=== PATIENT | male | born 1945 | race Caucasian/White ===

== ENCOUNTER 2018-04-17 08:32 | Inpatient (IN) | payer MEDICARE, MEDICAID, OTHER ==
[~2018-04-17] VITALS: Ht 180.3 cm; Wt 73.4 kg
[2018-04-17] MEDS ORDERED: ASPIRIN 600 MG SUPP PR STA (08:41)
[2018-04-17 08:56] LABS: BASOPHILS # (AUTO) 0.06 x10^3/uL (0-0.1); BASOPHILS % (AUTO) 1 % (0-1); EOSINOPHILS # (AUTO) 0.29 x10^3/uL (0-0.4); EOSINOPHILS % (AUTO) 3 % (1-7); LYMPHOCYTES # (AUTO) 1.74 x10^3/uL (1-3.4); LYMPHOCYTES % (AUTO) 19 % (22-44); MD NO; MEAN CORPUSCULAR HEMOGLOBIN 30.8 pg (27.5-34.5); MEAN CORPUSCULAR HGB CONC 33.3 g/dL (33.2-36.2); MEAN CORPUSCULAR VOLUME 92.5 fL (81-97); MEAN PLATELET VOLUME 8.5 fL (7.4-10.4); MONOCYTES # (AUTO) 0.72 x10^3/uL (0.2-0.8); MONOCYTES % (AUTO) 8 % (2-9); NEUTROPHILS # (AUTO) 6.29 x10^3/uL (1.8-6.8); NEUTROPHILS % (AUTO) 69 % (42-75); PLATELET COUNT 162 x10^3/uL (130-400); RED BLOOD COUNT 4.35 x10^6/uL (4.38-5.82); RED CELL DISTRIBUTION WIDTH 16.7 % (9.4-14.8)
[2018-04-17 09:07] LABS: INTERNATIONAL NORMALIZED RATIO 1.03 (0.93-1.1); PROTHROMBIN TIME 10.7 Seconds (9.6-11.5)
[2018-04-17 09:11] LABS: TROPONIN I < 0.015 ng/mL (0.000-0.045)
[2018-04-17] MEDS ORDERED: MIDAZOLAM 1 MG/ML, 2ML ONE (09:23)
[2018-04-17] MEDS ORDERED: VERAPAMIL 2.5 MG/ML, 2ML ONE (09:23)
[2018-04-17] MEDS ORDERED: FENTANYL PF 100 MCG/2ML ONE (09:23)
[2018-04-17] MEDS ORDERED: BIVALIRUDIN 250 MG ONE (09:23)
[2018-04-17] MEDS ORDERED: TICAGRELOR 90 MG TABLET ONE (09:23)
[2018-04-17] MEDS ORDERED: LIDOCAINE-MPF 1%, 5ML ONE (09:24)
[2018-04-17] MEDS: PLEASE ENTER ALLERGIES MC SCH ×3 (09:30→19:56)
[2018-04-17] MEDS: SODIUM CHLORIDE 0.9% 1,000 ML IV SCH ×2 (10:08→18:22)
[2018-04-17] MEDS ORDERED: LABETALOL 5MG/ML, 20ML IV PRN (12:00)
[2018-04-17] MEDS ORDERED: BISACODYL 10 MG SUPP PR PRN (12:00)
[2018-04-17] MEDS ORDERED: ACETAMINOPHEN 325 MG TABLET PO PRN (12:00)
[2018-04-17] MEDS ORDERED: ONDANSETRON 2MG/ML, 2ML IVPush PRN (12:00)
[2018-04-17] MEDS ORDERED: DOCUSATE 100 MG CAPSULE PO PRN (12:00)
[2018-04-17] MEDS ORDERED: POLYETHYLENE GLYCOL 17 GM PACKET PO PRN (12:00)
[2018-04-17 13:12] LABS: CHLORIDE 110 mmol/L (98-107)
[2018-04-17 13:30] LABS: ALANINE AMINOTRANSFERASE 13 U/L (12-78); ALBUMIN 3.7 g/dL (3.4-5.0); ALKALINE PHOSPHATASE 59 U/L (45-117); ANION GAP 12 mmol/L (5-15); BILIRUBIN,TOTAL 0.7 mg/dL (0.2-1.0); CALCIUM 9.4 mg/dL (8.5-10.1); CREATININE 1.56 mg/dL (0.7-1.3); TOTAL PROTEIN 7.3 g/dL (6.4-8.2)
[2018-04-17] MEDS ORDERED: DEXTROSE 4 GM TAB.CHEW PO PRN (15:00)
[2018-04-17] MEDS ORDERED: DEXTROSE 50%, 50ML SYRINGE IVPush PRN (15:00)
[2018-04-17] MEDS ORDERED: GLUCAGON 1 MG IM PRN (15:00)
[2018-04-17] MEDS ORDERED: CARB1TAB22 PO (16:09)
[2018-04-17] MEDS ORDERED: LEVO50TA5 PO (16:09)
[2018-04-17] MEDS ORDERED: IBUP-1221 PO (16:09)
[2018-04-17] MEDS ORDERED: TAMS0.4C2 PO (16:09)
[2018-04-17] MEDS ORDERED: METO10TA2 PO (16:09)
[2018-04-17] MEDS ORDERED: GABA800T2 PO (16:09)
[2018-04-17] MEDS ORDERED: MIRT7.5T8 PO (16:09)
[2018-04-17] MEDS ORDERED: SIMV80TA7 PO (16:09)
[2018-04-17] MEDS ORDERED: ASPI-621 PO (16:09)
[2018-04-17] MEDS ORDERED: FLUD0.1T PO (16:09)
[2018-04-17] MEDS ORDERED: TRAZ-136 PO (16:09)
[2018-04-17] MEDS ORDERED: INSU100V8 SQ (18:15)
[2018-04-17] MEDS: METOPROLOL TARTRATE 25 MG TABLET PO SCH (18:21)
[2018-04-17 20:00] VITALS: BP 126/61
[2018-04-17] MEDS: SODIUM CHLORIDE FLUSH 10ML SYR IVF SCH (21:32)
[2018-04-17] MEDS: ATORVASTATIN 80 MG TABLET PO SCH (21:32)
[2018-04-17] MEDS ORDERED: LORazepam 1MG TABLET PO ONE (23:30)
[2018-04-18] MEDS ORDERED: LORazepam 1MG TABLET PO ONE
[2018-04-18] MEDS ORDERED: LORazepam 1MG TABLET PO PRN (00:30)
[2018-04-18 02:00] VITALS: BP 129/67
[2018-04-18] MEDS ORDERED: ZIPRASIDONE 20 MG INJ IM ONE (04:30)
[2018-04-18 05:44] LABS: BASOPHILS # (AUTO) 0.03 x10^3/uL (0-0.1); BASOPHILS % (AUTO) 1 % (0-1); EOSINOPHILS # (AUTO) 0.26 x10^3/uL (0-0.4); EOSINOPHILS % (AUTO) 4 % (1-7); LYMPHOCYTES # (AUTO) 1.11 x10^3/uL (1-3.4); LYMPHOCYTES % (AUTO) 17 % (22-44); MD NO; MEAN CORPUSCULAR HEMOGLOBIN 31.2 pg (27.5-34.5); MEAN CORPUSCULAR HGB CONC 34.1 g/dL (33.2-36.2); MEAN CORPUSCULAR VOLUME 91.7 fL (81-97); MEAN PLATELET VOLUME 8.3 fL (7.4-10.4); MONOCYTES # (AUTO) 0.49 x10^3/uL (0.2-0.8); MONOCYTES % (AUTO) 8 % (2-9); NEUTROPHILS % (AUTO) 71 % (42-75); PLATELET COUNT 136 x10^3/uL (130-400); RED BLOOD COUNT 3.92 x10^6/uL (4.38-5.82); RED CELL DISTRIBUTION WIDTH 16.6 % (9.4-14.8)
[2018-04-18 05:55] LABS: CHLORIDE 111 mmol/L (98-107)
[2018-04-18 05:58] LABS: HEMOGLOBIN A1C 6.5 % (4.2-6.3)
[2018-04-18 06:05] LABS: ALANINE AMINOTRANSFERASE 17 U/L (12-78); ALBUMIN 3.3 g/dL (3.4-5.0); ALKALINE PHOSPHATASE 56 U/L (45-117); ANION GAP 8 mmol/L (5-15); BILIRUBIN,TOTAL 0.9 mg/dL (0.2-1.0); CHOL/HDL RATIO 2.2; CHOLESTEROL, TOTAL 98 mg/dL (140-239); CREATININE 0.65 mg/dL (0.7-1.3); HDL CHOL % 46 % (26-37); HDL CHOLESTEROL (DIRECT) 45 mg/dL (40-60); LDL CHOLESTEROL,CALCULATED 24 mg/dL (54-169); LDL/HDL RATIO 0.5 (0.5-3.0); TOTAL PROTEIN 6.7 g/dL (6.4-8.2); TRIGLYCERIDES 146 mg/dL (50-200); VLDL CHOLESTEROL 29 mg/dL (0-25)
[2018-04-18] MEDS: ASPIRIN 81 MG TABLET EC PO SCH (06:43)
[2018-04-18] MEDS: METOPROLOL TARTRATE 25 MG TABLET PO SCH ×2 (06:43→16:41)
[2018-04-18] MEDS: SODIUM CHLORIDE 0.9% 1,000 ML IV SCH (07:00)
[2018-04-18 07:06] VITALS: BP 187/91
[2018-04-18 08:45] VITALS: BP 140/81
[2018-04-18] MEDS: GABAPENTIN 400 MG CAPSULE PO SCH ×2 (08:52→22:18)
[2018-04-18] MEDS: LEVOTHYROXINE 50 MCG TABLET PO SCH (08:52)
[2018-04-18] MEDS: TAMSULOSIN 0.4 MG CAP.ER.24H PO SCH ×2 (08:53→22:18)
[2018-04-18] MEDS: SODIUM CHLORIDE FLUSH 10ML SYR IVF SCH ×2 (08:53→22:18)
[2018-04-18] MEDS: FLUDROCORTISONE 0.1 MG TABLET PO SCH (08:53)
[2018-04-18] MEDS ORDERED: CARBIDOPA/LEVODOPA 25 MG/100 MG TABLET PO SCH (09:00)
[2018-04-18 11:48] LABS: FOLATE LEVEL 12.5 ng/mL (3.1-17.5); FREE T4 (FREE THYROXINE) 0.96 ng/dL (0.76-1.46); THYROID STIMULATING HORMONE 4.88 mIU/L (0.358-3.740)
[2018-04-18 13:16] VITALS: BP 114/56
[2018-04-18 20:00] VITALS: BP 159/66
[2018-04-18 22:16] VITALS: BP 159/66
[2018-04-18] MEDS: CARBIDOPA/LEVODOPA 25 MG/100 MG TABLET PO SCH (22:17)
[2018-04-18] MEDS: MIRTAZAPINE 15 MG TABLET PO SCH (22:17)
[2018-04-18] MEDS: ATORVASTATIN 80 MG TABLET PO SCH (22:18)
[2018-04-19] VITALS (8 sets, daily range): BP systolic 81–179; BP diastolic 44–70
[2018-04-19] MEDS: ASPIRIN 81 MG TABLET EC PO SCH (05:49)
[2018-04-19] MEDS: METOPROLOL TARTRATE 25 MG TABLET PO SCH (05:49)
[2018-04-19 09:02] LABS: BASOPHILS # (AUTO) 0.09 x10^3/uL (0-0.1); BASOPHILS % (AUTO) 1 % (0-1); EOSINOPHILS # (AUTO) 0.21 x10^3/uL (0-0.4); EOSINOPHILS % (AUTO) 3 % (1-7); LYMPHOCYTES # (AUTO) 0.98 x10^3/uL (1-3.4); LYMPHOCYTES % (AUTO) 16 % (22-44); MD NO; MEAN CORPUSCULAR HEMOGLOBIN 31.3 pg (27.5-34.5); MEAN PLATELET VOLUME 8.4 fL (7.4-10.4); MONOCYTES # (AUTO) 0.52 x10^3/uL (0.2-0.8); MONOCYTES % (AUTO) 8 % (2-9); NEUTROPHILS # (AUTO) 4.45 x10^3/uL (1.8-6.8); NEUTROPHILS % (AUTO) 71 % (42-75); PLATELET COUNT 140 x10^3/uL (130-400); RED BLOOD COUNT 3.85 x10^6/uL (4.38-5.82); RED CELL DISTRIBUTION WIDTH 16.5 % (9.4-14.8)
[2018-04-19] MEDS: TAMSULOSIN 0.4 MG CAP.ER.24H PO SCH ×2 (09:02→20:59)
[2018-04-19] MEDS: FLUDROCORTISONE 0.1 MG TABLET PO SCH (09:02)
[2018-04-19] MEDS: LEVOTHYROXINE 50 MCG TABLET PO SCH (09:03)
[2018-04-19] MEDS: CARBIDOPA/LEVODOPA 25 MG/100 MG TABLET PO SCH ×3 (09:03→20:59)
[2018-04-19] MEDS: SODIUM CHLORIDE FLUSH 10ML SYR IVF SCH ×2 (09:04→21:00)
[2018-04-19] MEDS: GABAPENTIN 400 MG CAPSULE PO SCH ×2 (09:04→20:59)
[2018-04-19 09:15] LABS: ALBUMIN 3.4 g/dL (3.4-5.0); ANION GAP 9 mmol/L (5-15); CALCIUM 8.9 mg/dL (8.5-10.1); CHLORIDE 108 mmol/L (98-107); CREATININE 0.89 mg/dL (0.7-1.3)
[2018-04-19] MEDS: ATORVASTATIN 80 MG TABLET PO SCH (20:59)
[2018-04-19] MEDS: MIRTAZAPINE 15 MG TABLET PO SCH (20:59)
[2018-04-20 01:10] VITALS: BP 158/71
[2018-04-20 05:44] LABS: BASOPHILS # (AUTO) 0.03 x10^3/uL (0-0.1); BASOPHILS % (AUTO) 1 % (0-1); EOSINOPHILS # (AUTO) 0.17 x10^3/uL (0-0.4); EOSINOPHILS % (AUTO) 3 % (1-7); LYMPHOCYTES # (AUTO) 0.57 x10^3/uL (1-3.4); LYMPHOCYTES % (AUTO) 10 % (22-44); MD NO; MEAN CORPUSCULAR HEMOGLOBIN 31.6 pg (27.5-34.5); MEAN CORPUSCULAR HGB CONC 33.9 g/dL (33.2-36.2); MEAN CORPUSCULAR VOLUME 93.2 fL (81-97); MEAN PLATELET VOLUME 8.8 fL (7.4-10.4); MONOCYTES # (AUTO) 0.43 x10^3/uL (0.2-0.8); MONOCYTES % (AUTO) 8 % (2-9); NEUTROPHILS # (AUTO) 4.33 x10^3/uL (1.8-6.8); NEUTROPHILS % (AUTO) 78 % (42-75); PLATELET COUNT 123 x10^3/uL (130-400); RED BLOOD COUNT 3.75 x10^6/uL (4.38-5.82); RED CELL DISTRIBUTION WIDTH 16.5 % (9.4-14.8)
[2018-04-20 05:49] LABS: ALBUMIN 3.2 g/dL (3.4-5.0); ANION GAP 7 mmol/L (5-15); CALCIUM 8.6 mg/dL (8.5-10.1); CHLORIDE 108 mmol/L (98-107)
[2018-04-20 05:54] LABS: ALANINE AMINOTRANSFERASE 13 U/L (12-78); ALKALINE PHOSPHATASE 65 U/L (45-117); BILIRUBIN,TOTAL 0.6 mg/dL (0.2-1.0); TOTAL PROTEIN 6.6 g/dL (6.4-8.2)
[2018-04-20] MEDS: ASPIRIN 81 MG TABLET EC PO SCH (06:26)
[2018-04-20 07:16] VITALS: BP 153/73
[2018-04-20] MEDS: FLUDROCORTISONE 0.1 MG TABLET PO SCH (09:00)
[2018-04-20] MEDS: SODIUM CHLORIDE FLUSH 10ML SYR IVF SCH (09:00)
[2018-04-20] MEDS: LEVOTHYROXINE 50 MCG TABLET PO SCH (09:01)
[2018-04-20] MEDS: TAMSULOSIN 0.4 MG CAP.ER.24H PO SCH (09:01)
[2018-04-20] MEDS: CARBIDOPA/LEVODOPA 25 MG/100 MG TABLET PO SCH ×2 (09:01→16:41)
[2018-04-20] MEDS: GABAPENTIN 400 MG CAPSULE PO SCH (09:01)
[2018-04-20 12:25] LABS: CLOSTRIDIUM DIFFICILE ANTIGEN NEGATIVE; CLOSTRIDIUM DIFFICILE TOXIN NEGATIVE (Negative)
[2018-04-20 12:51] VITALS: BP 149/78
[2018-04-20] MEDS ORDERED: ATOR-2 PO (14:05)
[2018-04-20] MEDS ORDERED: CARB1TAB22 PO (14:05)
[2018-04-20] MEDS ORDERED: TAMS0.4C2 PO (14:47)
== END 2018-04-20 17:19 | DRG 280 ==
LOC: ED 09:48 → EDIP 09:53 → CCU 10:22 → 5SO 16:54
PROVIDERS: ADMIT Hospitalist; ATTEND Hospitalist
PROC: 4A023N7 Measurement of Cardiac Sampling and Pressure, Left Heart, Percutaneous Approach (ICD-10-PCS; principal; 2018-04-17)
PROC: B2111ZZ Fluoroscopy of Multiple Coronary Arteries using Low Osmolar Contrast (ICD-10-PCS; 2018-04-17)
PROC: B2151ZZ Fluoroscopy of Left Heart using Low Osmolar Contrast (ICD-10-PCS; 2018-04-17)
PROC: B3101ZZ Fluoroscopy of Thoracic Aorta using Low Osmolar Contrast (ICD-10-PCS; 2018-04-17)
PROC: B3121ZZ Fluoroscopy of Left Subclavian Artery using Low Osmolar Contrast (ICD-10-PCS; 2018-04-17)
DX: I21.09 ST elevation (STEMI) myocardial infarction involving other coronary artery of anterior wall (principal); N17.0 Acute kidney failure with tubular necrosis; I63.81 Other cerebral infarction due to occlusion or stenosis of small artery; E43 Unspecified severe protein-calorie malnutrition; G93.40 Encephalopathy, unspecified; E11.43 Type 2 diabetes mellitus with diabetic autonomic (poly)neuropathy; E11.51 Type 2 diabetes mellitus with diabetic peripheral angiopathy without gangrene; E78.5 Hyperlipidemia, unspecified; E86.0 Dehydration; F17.200 Nicotine dependence, unspecified, uncomplicated; G20 Parkinson's disease; I10 Essential (primary) hypertension; I25.10 Atherosclerotic heart disease of native coronary artery without angina pectoris; I95.1 Orthostatic hypotension; G90.8 Other disorders of autonomic nervous system; I35.1 Nonrheumatic aortic (valve) insufficiency; Z86.73 Personal history of transient ischemic attack (TIA), and cerebral infarction without residual deficits; Z95.1 Presence of aortocoronary bypass graft; Z23 Encounter for immunization; Z68.22 Body mass index [BMI] 22.0-22.9, adult
CPT/HCPCS: 36415; 70450; 70544; 70551; 71045; 74230; 80047; 80048; 80053; 80061; 82040; 82607; 82746; 82962; 83036; 83735; 84100; 84439; 84443; 84484; 85025; 85610; 85730; 87081; 87324; 90656; 93005; 93306; 93458; 93567; 93880; 99156; 99285; C1760; C1769; C1894; G0378; J0583; J2250; J3010; J3486; 92523-GN; J7030; Q9967

== ENCOUNTER 2018-06-16 01:44 | Emergency (ER) | payer MEDICARE, MEDICAID ==
[~2018-06-16] VITALS: Ht 177.8 cm; Wt 84.0 kg
[~2018-06-16 01:44] MED LIST: ASPI81TA45 PO; ATOR-2 PO; CARB1TAB22 PO; FLUD0.1T PO; GABA800T2 PO; IBUP-1221 PO; INSU100V8 SQ; LEVO50TA5 PO; METO10TA2 PO; MIRT7.5T8 PO; SIMV80TA7 PO; TAMS0.4C2 PO; TRAZ50TA66 PO
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
--- NOTE | 2018-06-16 01:58 | NUR ---
Doreen DOLL, at bedside to evaluate pt.
--- NOTE | 2018-06-16 02:05 | NUR ---
PT'S FAMILY AT BEDSIDE AND UPDATED ON POC.
--- NOTE | 2018-06-16 02:21 | NUR ---
DR. CHARLES AT BEDSIDE TO EVALUATE PT AND DISCUSS POC WITH PT'S FAMILY.
--- NOTE | 2018-06-16 02:26 | NUR ---
This RN spoke with staff member, Radha, at [facility] who states that they are accepting the pt back to the facility. Dr. Torres and SHARMILA Logan, made aware and pt's discharge paperwork ready.
[2018-06-16 02:45] VITALS: BP 157/58
--- NOTE | 2018-06-16 02:46 | NUR ---
Patient/Caregiver given discharge instructions and they have confirmed that they understand the instructions. Patient ambulatory with steady gait.
== END 2018-06-16 02:47 | disposition home or self-care (01) ==
LOC: ED 02:04
DX: T68.XXXA Hypothermia, initial encounter (principal); F03.90 Unspecified dementia, unspecified severity, without behavioral disturbance, psychotic disturbance, mood disturbance, and anxiety
CPT/HCPCS: 99283

== ENCOUNTER 2018-08-01 11:04 | Observation (INO) | payer MEDICARE, MEDICAID ==
[~2018-08-01] VITALS: Ht 177.8 cm; Wt 74.0 kg
[~2018-08-01 11:04] MED LIST changes: -GABA800T2 PO; +GABA800T5 PO; +SIMV80TA18 PO; -SIMV80TA7 PO
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
[2018-08-01] MEDS ORDERED: SODIUM CHLORIDE FLUSH 10ML SYR IVF ONE (11:30)
[2018-08-01] MEDS ORDERED: ASPIRIN 81 MG TABLET CHEW PO ONE (11:30)
[2018-08-01] MEDS ORDERED: NITROGLYCERIN SINGLE TAB 0.4 MG SL ONE (11:42)
[2018-08-01] MEDS ORDERED: ASPIRIN 81 MG TABLET CHEW ONE (11:42)
[2018-08-01] MEDS: NITROGLYCERIN SINGLE TAB 0.4 MG SL PRN ×3 (11:50→12:17)
--- NOTE | 2018-08-01 11:51 | NUR ---
PT MEDICATED PER AUG. 5 RIGHTS VERIFIED PRIOR. 3 P'S ADDRESSED.
--- NOTE | 2018-08-01 12:00 | NUR ---
PT MEDICATED PER AUG. RIGHTS VERIFIED PRIOR. NO CHANGE IN PT'S /10 CHEST PAIN.
[2018-08-01 12:04] LABS: ALBUMIN 3.4 g/dL (3.4-5.0); ANION GAP 7 mmol/L (5-15); CALCIUM 9.2 mg/dL (8.5-10.1); CHLORIDE 109 mmol/L (98-107)
[2018-08-01 12:10] LABS: CREATININE 0.89 mg/dL (0.7-1.3); TROPONIN I < 0.015 ng/mL (0.000-0.045)
--- NOTE | 2018-08-01 12:17 | NUR ---
PT MEDICATED PER AUG. RIGHTS VERIFIED PRIOR. PT STATES CHEST PAIN IS NOW 11/20.
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
[2018-08-01 12:56] LABS: BASOPHILS # (AUTO) 0.02 x10^3/uL (0-0.1); BASOPHILS % (AUTO) 0 % (0-1); EOSINOPHILS # (AUTO) 0.27 x10^3/uL (0-0.4); EOSINOPHILS % (AUTO) 4 % (1-7); LYMPHOCYTES # (AUTO) 1.22 x10^3/uL (1-3.4); LYMPHOCYTES % (AUTO) 19 % (22-44); MD SCAN; MEAN CORPUSCULAR HEMOGLOBIN 30.6 pg (27.5-34.5); MEAN CORPUSCULAR HGB CONC 33.6 g/dL (33.2-36.2); MEAN CORPUSCULAR VOLUME 91.1 fL (81-97); MEAN PLATELET VOLUME 8.4 fL (7.4-10.4); MONOCYTES # (AUTO) 0.33 x10^3/uL (0.2-0.8); MONOCYTES % (AUTO) 5 % (2-9); NEUTROPHILS % (AUTO) 71 % (42-75); PLATELET COUNT 164 x10^3/uL (130-400); RED BLOOD COUNT 4.05 x10^6/uL (4.38-5.82)
[2018-08-01 12:57] LABS: RED CELL DISTRIBUTION WIDTH 15.2 % (9.4-14.8)
[2018-08-01] MEDS ORDERED: NITROGLYCERIN OINT 2%, 1GM TP ONE ×2 (13:00→13:37)
--- NOTE | 2018-08-01 13:42 | NUR ---
PT MEDICATED PER AUG. RIGHTS VERIFIED PRIOR. 3 P'S ADDRESSED. POC UPDATED WITH PT. AWAITING ROOM ASSIGNMENT AT THIS TIME. WILL CONTINUE TO MONITOR.
[2018-08-01] MEDS ORDERED: ONDANSETRON 2MG/ML, 2ML IVPush PRN (14:00)
[2018-08-01] MEDS ORDERED: ONDANSETRON ODT 4 MG PO PRN (14:00)
[2018-08-01] MEDS ORDERED: ACETAMINOPHEN 325 MG TABLET PO PRN (14:00)
[2018-08-01] MEDS ORDERED: MORPHINE SULFATE 4 MG/ML, 1ML IVPush PRN (14:00)
[2018-08-01 14:39] LABS: TROPONIN I < 0.015 ng/mL (0.000-0.045)
--- NOTE | 2018-08-01 14:41 | NUR ---
LUNCH RN: PT RESTING IN ROOM WITH FAMILY AT BEDSIDE. AWAITING ROOM ON FLOOR. AHSAN COKER. DIET TRAY ORDERED PER PT REQUEST. CALL LIGHT WITHIN REACH
--- NOTE | 2018-08-01 15:09 | NUR ---
REPORT TO LAKISHA FUCHS. AWARE THAT SACRAL WOUND REPORTED BY FAMILY NEEDS TO BE PHOTOGRAPHED.
[2018-08-01] MEDS: INSULIN LISPRO 100 UNITS/ML, PEN SQ-INSULIN SCH ×2 (16:00→22:32)
[2018-08-01 16:15] VITALS: BP 154/74
[2018-08-01] MEDS: LACTOBACILLUS CHEW TABLET PO SCH ×2 (17:08→20:23)
[2018-08-01] MEDS: NICOTINE 7 MG/24 HR PATCH.TD24 TD SCH (17:08)
[2018-08-01] MEDS: CARBIDOPA/LEVODOPA 25 MG/100 MG TABLET PO SCH ×2 (17:08→20:23)
[2018-08-01] MEDS: SODIUM CHLORIDE 0.9% 1,000 ML IV SCH (17:09)
[2018-08-01] MEDS: ENOXAPARIN 40 MG/0.4 ML SQ SCH (17:09)
[2018-08-01 18:35] VITALS: BP 167/75
[2018-08-01] MEDS ORDERED: INSU100V13 SC ×2 (19:46)
[2018-08-01] MEDS ORDERED: MIDO2.5T PO (19:46)
[2018-08-01] MEDS ORDERED: ROPI0.5T2 PO (19:46)
[2018-08-01 19:52] LABS: TROPONIN I < 0.015 ng/mL (0.000-0.045)
[2018-08-01] MEDS: MIRTAZAPINE 15 MG TABLET PO SCH (20:23)
[2018-08-01] MEDS: GABAPENTIN 400 MG CAPSULE PO SCH (20:23)
[2018-08-01] MEDS: ATORVASTATIN 80 MG TABLET PO SCH (20:23)
[2018-08-01] MEDS ORDERED: TRAZODONE 50MG TABLET ONE (22:08)
[2018-08-01] MEDS: INSULIN GLARGINE 100 UNITS/ML, PEN SQ-INSULIN SCH (22:32)
[2018-08-02 01:25] VITALS: BP 113/59
[2018-08-02] MEDS: INSULIN LISPRO 100 UNITS/ML, PEN SQ-INSULIN SCH ×4 (07:00→20:33)
[2018-08-02 07:42] VITALS: BP 134/58
[2018-08-02 08:33] LABS: HEMOGLOBIN A1C 7.5 % (4.2-6.3)
[2018-08-02] MEDS ORDERED: REGADENOSON 0.4 MG/5 ML SYRINGE ONE (08:49)
[2018-08-02] MEDS: LEVOTHYROXINE 50 MCG TABLET PO SCH (08:51)
[2018-08-02] MEDS: GABAPENTIN 400 MG CAPSULE PO SCH ×2 (08:51→20:31)
[2018-08-02] MEDS: CARBIDOPA/LEVODOPA 25 MG/100 MG TABLET PO SCH ×3 (08:51→20:32)
[2018-08-02] MEDS: LACTOBACILLUS CHEW TABLET PO SCH ×3 (08:53→20:31)
[2018-08-02] MEDS: TAMSULOSIN 0.4 MG CAP.ER.24H PO SCH (08:53)
[2018-08-02] MEDS: ASPIRIN 81 MG TABLET EC PO SCH (08:53)
[2018-08-02] MEDS: INSULIN GLARGINE 100 UNITS/ML, PEN SQ-INSULIN SCH ×2 (08:54→20:33)
[2018-08-02] MEDS ORDERED: FLUDROCORTISONE 0.1 MG TABLET PO SCH (09:00)
[2018-08-02] MEDS ORDERED: NICO-485 TD (10:18)
[2018-08-02] MEDS ORDERED: ACID1TAB7 PO (10:18)
[2018-08-02] MEDS ORDERED: NITR0.4T SL (10:18)
[2018-08-02 13:28] VITALS: BP 158/70
[2018-08-02] MEDS: SODIUM CHLORIDE 0.9% 1,000 ML IV SCH (17:14)
[2018-08-02] MEDS: NICOTINE 7 MG/24 HR PATCH.TD24 TD SCH (17:15)
[2018-08-02] MEDS: ENOXAPARIN 40 MG/0.4 ML SQ SCH (17:16)
[2018-08-02 19:21] VITALS: BP 133/72
[2018-08-02] MEDS: TRAZODONE 50MG TABLET PO SCH (20:31)
[2018-08-02] MEDS: ATORVASTATIN 80 MG TABLET PO SCH (20:31)
[2018-08-02] MEDS: MIRTAZAPINE 15 MG TABLET PO SCH (20:32)
[2018-08-03 02:07] VITALS: BP_SYST 148; BP_SYST 149; BP_DIAS 66
[2018-08-03] MEDS: LEVOTHYROXINE 50 MCG TABLET PO SCH (05:50)
[2018-08-03] MEDS: INSULIN LISPRO 100 UNITS/ML, PEN SQ-INSULIN SCH ×3 (07:00→16:00)
[2018-08-03 07:34] VITALS: BP 153/72
[2018-08-03] MEDS: GABAPENTIN 400 MG CAPSULE PO SCH (10:31)
[2018-08-03] MEDS: TAMSULOSIN 0.4 MG CAP.ER.24H PO SCH (10:31)
[2018-08-03] MEDS: TRAZODONE 50MG TABLET PO SCH (10:31)
[2018-08-03] MEDS: LACTOBACILLUS CHEW TABLET PO SCH (10:31)
[2018-08-03] MEDS: ASPIRIN 81 MG TABLET EC PO SCH (10:31)
[2018-08-03] MEDS: CARBIDOPA/LEVODOPA 25 MG/100 MG TABLET PO SCH (10:31)
[2018-08-03] MEDS: INSULIN GLARGINE 100 UNITS/ML, PEN SQ-INSULIN SCH (11:07)
[2018-08-03 13:53] VITALS: BP 163/81
== END 2018-08-03 17:03 ==
LOC: ED 12:55 → EDIP 12:58 → INTOOBSV 12:58 → 5SO 15:39
PROVIDERS: ADMIT Internal Medicine; ATTEND Internal Medicine
DX: I25.119 Atherosclerotic heart disease of native coronary artery with unspecified angina pectoris (principal); E11.9 Type 2 diabetes mellitus without complications; F03.90 Unspecified dementia, unspecified severity, without behavioral disturbance, psychotic disturbance, mood disturbance, and anxiety; F17.210 Nicotine dependence, cigarettes, uncomplicated; G20 Parkinson's disease; G45.9 Transient cerebral ischemic attack, unspecified; G47.00 Insomnia, unspecified; I10 Essential (primary) hypertension; I25.2 Old myocardial infarction; Z86.73 Personal history of transient ischemic attack (TIA), and cerebral infarction without residual deficits; Z95.1 Presence of aortocoronary bypass graft; Z95.5 Presence of coronary angioplasty implant and graft; R01.1 Cardiac murmur, unspecified
CPT/HCPCS: 36415; 71045; 78452; 80048; 82040; 82962; 83036; 84484; 85025; 93005; 93017; 93306; 96372; 97162; 99284; A9502; C9898; G0378; J1650; J1815; J2785; J7030

== ENCOUNTER 2018-09-11 12:57 | Inpatient (IN) | payer MEDICARE, MEDICAID ==
[~2018-09-11] VITALS: Ht 182.9 cm; Wt 71.6 kg
[~2018-09-11 12:57] MED LIST changes: +ACID1TAB7 PO; +INSU100V13 SC; +MIDO2.5T PO; +NICO-485 TD; +NITR0.4T SL; +ROPI0.5T2 PO
--- NOTE | 2018-09-11 13:15 | NUR ---
returned from CT at this time
[2018-09-11] MEDS ORDERED: SODIUM CHLORIDE 0.9% 1,000 ML IV ONE (13:20)
[2018-09-11] MEDS ORDERED: OMNIPAQUE 350 MG/ML, 100ML BOTTLE ONE (13:29)
[2018-09-11] MEDS ORDERED: SODIUM CHLORIDE FLUSH 10ML SYR IVF ONE (13:30)
[2018-09-11] MEDS ORDERED: ACETAMINOPHEN 650 MG SUPP PR ONE (13:30)
[2018-09-11] MEDS ORDERED: SODIUM CHLORIDE 0.9% 1,000ML IVBOLUS ONE ×2 (13:30→14:30)
--- NOTE | 2018-09-11 13:30 | NUR ---
Patient brought in by EMS for reported sudden onset altered level of consciousness at 1100 this morning. Upon arrival patient's blood glucose was reportedly 355mg/dL and patient was unable to follow commands. Stroke pre alert called, patient arrived to Emergency Department and was taken directly to CT scan. Patient has been mostly drowsy since arrival, arouses to voice but has difficulty following commands. Continuous blood pressure, SPO2 and cardiac monitoring in place. Daughter at bedside at this time. Labs being drawn.
[2018-09-11 13:33] LABS: MEAN CORPUSCULAR HEMOGLOBIN 29.6 pg (27.5-34.5); MEAN CORPUSCULAR HGB CONC 32.7 g/dL (33.2-36.2); MEAN CORPUSCULAR VOLUME 90.6 fL (81-97); PLATELET COUNT 129 x10^3/uL (130-400); RED BLOOD COUNT 3.95 x10^6/uL (4.38-5.82)
--- NOTE | 2018-09-11 13:33 | NUR ---
Patient will multiple ulcers to bilateral toes, pressure wound to coccyx.
[2018-09-11 13:43] LABS: INTERNATIONAL NORMALIZED RATIO 1.11 (0.93-1.1); PROTHROMBIN TIME 11.6 Seconds (9.6-11.5)
[2018-09-11 13:53] LABS: MD YES
[2018-09-11 13:55] LABS: BANDS%(MANUAL) 24 % (0-7); MONOS#(MANUAL) 1.05 x10^3/uL (0.3-2.7); MONOS% (MANUAL) 7 % (2-9); SEG#(MANUAL) 10.35 x10^3/uL (1.8-6.8); SEGS% (MANUAL) 69 % (42-75)
[2018-09-11 13:56] LABS: ANISOCYTOSIS 1+
[2018-09-11 13:57] LABS: <PLATELET ESTIMATE> DECREASED; <PLT MORPHOLOGY> NORMAL PLT MORPH
[2018-09-11] MEDS ORDERED: ALTEPLASE IV STA (14:11)
[2018-09-11] MEDS ORDERED: ALTEPLASE 7 MG in SYRINGE 1 EA IVPush STA (14:11)
[2018-09-11 14:13] LABS: TROPONIN I < 0.015 ng/mL (0.000-0.045)
--- NOTE | 2018-09-11 14:16 | NUR ---
When attempting to use straight catheterization for urine sample patient had bleeding from urethra without excessive force used, patient tolerated well but catheter removed without retrieving sample. Dr. Estrada notified, condom catheter to be put in place for urine sample per Dr. Estrada. Dr. Cruz notified of bleeding with catheterization attempt.
[2018-09-11 14:21] LABS: ACETONE, SERUM Negative (Negative)
[2018-09-11] MEDS ORDERED: CEFTRIAXONE PMX 1GM/50ML 50 ML ONE (14:24)
[2018-09-11] MEDS ORDERED: ACETAMINOPHEN 650 MG SUPP ONE (14:24)
[2018-09-11] MEDS ORDERED: AZITHROMYCIN 500 MG in SODIUM CHLORIDE 0.9% 250 ML IVPB ONE (14:30)
[2018-09-11] MEDS ORDERED: CEFTRIAXONE PMX 1GM/50ML 50 ML IVPB ONE (14:30)
--- NOTE | 2018-09-11 14:41 | NUR ---
Patient rolled on his left side after tylenol administration
[2018-09-11] MEDS ORDERED: INSU100V13 SC ×2 (14:52)
[2018-09-11] MEDS ORDERED: SODIUM CHLORIDE FLUSH 10ML SYR IVF PRN (15:00)
--- NOTE | 2018-09-11 16:18 | NUR ---
Report to LAKISHA Hammond.
--- NOTE | 2018-09-11 16:25 | NUR ---
Plan of care updated with patient's family, questions answered. Daughter Bailee: [phone] Son in law Miki: [phone]
[2018-09-11] MEDS ORDERED: DOCUSATE 100 MG CAPSULE PO PRN (16:30)
[2018-09-11] MEDS ORDERED: hydrALAzine 20 MG/ML, 1ML IVPush PRN (16:30)
[2018-09-11] MEDS ORDERED: ONDANSETRON 2MG/ML, 2ML IVPush PRN (16:30)
--- NOTE | 2018-09-11 16:34 | NUR ---
Condom catheter not yet received from central supply despite multiple requests. Patient incontinent of large amount of urine perineal hygiene performed.
[2018-09-11 17:36] VITALS: BP 122/74
[2018-09-11] MEDS: LACTATED RINGERS 1,000 ML IV SCH (18:10)
[2018-09-11 19:31] VITALS: BP 103/55
[2018-09-11] MEDS: ROPINIROLE 0.5MG TABLET PO SCH (21:00)
[2018-09-11] MEDS: TRAZODONE 50MG TABLET PO SCH (21:00)
[2018-09-11] MEDS: ATORVASTATIN 80 MG TABLET PO SCH (21:00)
[2018-09-11] MEDS: CARBIDOPA/LEVODOPA 25 MG/100 MG TABLET PO SCH (21:00)
[2018-09-11] MEDS ORDERED: INSULIN GLARGINE 100 UNITS/ML, PEN SQ-INSULIN SCH ×2 (23:30)
[2018-09-12] MEDS: LACTATED RINGERS 1,000 ML IV SCH ×2 (02:16→09:13)
[2018-09-12 02:26] VITALS: BP 126/54
[2018-09-12 06:20] LABS: CHLORIDE 113 mmol/L (98-107)
[2018-09-12 06:41] LABS: ANION GAP 8 mmol/L (5-15); CALCIUM 8.8 mg/dL (8.5-10.1); CREATININE 0.88 mg/dL (0.7-1.3); HDL CHOLESTEROL (DIRECT) 38 mg/dL (40-60)
[2018-09-12 07:05] LABS: MEAN CORPUSCULAR HEMOGLOBIN 30.2 pg (27.5-34.5); MEAN CORPUSCULAR HGB CONC 33.5 g/dL (33.2-36.2); MEAN CORPUSCULAR VOLUME 90.2 fL (81-97); MEAN PLATELET VOLUME 9.7 fL (7.4-10.4); PLATELET COUNT 91 x10^3/uL (130-400); RED BLOOD COUNT 3.78 x10^6/uL (4.38-5.82); RED CELL DISTRIBUTION WIDTH 16.3 % (9.4-14.8)
[2018-09-12 07:06] LABS: MD YES
[2018-09-12 07:08] LABS: <PLATELET ESTIMATE> DECREASED; <PLT MORPHOLOGY> NORMAL PLT MORPH; ANISOCYTOSIS 1+; BAND#(MANUAL) 0.78 x10^3/uL; BANDS%(MANUAL) 11 % (0-7); BASOS#(MANUAL) 0.07 x10^3/uL (0-0.1); BASOS% (MANUAL) 1 % (0-1); EOS#(MANUAL) 0.14 x10^3/uL (0.0-0.4); EOS% (MANUAL) 2 % (1-7); LYMPH#(MANUAL) 0.78 x10^3/uL (1-3.4); LYMPHS% (MANUAL) 11 % (22-44); MONOS#(MANUAL) 0.36 x10^3/uL (0.3-2.7); MONOS% (MANUAL) 5 % (2-9); SEG#(MANUAL) 4.97 x10^3/uL (1.8-6.8); SEGS% (MANUAL) 70 % (42-75)
[2018-09-12 07:14] LABS: CHOL/HDL RATIO 1.8; CHOLESTEROL, TOTAL 69 mg/dL (140-239); HDL CHOL % 55 % (26-37); LDL CHOLESTEROL,CALCULATED 9 mg/dL (54-169); TRIGLYCERIDES 108 mg/dL (50-200); VLDL CHOLESTEROL 22 mg/dL (0-25)
[2018-09-12 07:15] LABS: LDL/HDL RATIO 0.2 (0.5-3.0)
[2018-09-12 07:17] VITALS: BP 142/51
[2018-09-12] MEDS: NICOTINE 14MG/24 HR PATCH.TD24 TD SCH (09:00)
[2018-09-12] MEDS: CARBIDOPA/LEVODOPA 25 MG/100 MG TABLET PO SCH ×3 (09:00→21:11)
[2018-09-12] MEDS: TAMSULOSIN 0.4 MG CAP.ER.24H PO SCH (09:00)
[2018-09-12] MEDS: LEVOTHYROXINE 50 MCG TABLET PO SCH (09:00)
[2018-09-12] MEDS: ASPIRIN 81 MG TABLET EC PO SCH (09:00)
[2018-09-12 13:00] VITALS: BP 166/78
--- NOTE | 2018-09-12 15:07 | NUR ---
RUBEN recommend; YONI/ NTL -No straws -Up at 90 degrees -Alternate solids and liquids orange sheet posted Addendum: 09/12/18 at [address] Amended: Links added.
[2018-09-12] MEDS ORDERED: POTASSIUM PHOSPHATE 44 MEQ in SODIUM CHLORIDE 0.9% 500 ML IV ONE (15:30)
[2018-09-12] MEDS ORDERED: ENOXAPARIN 60 MG/0.6 ML SQ SCH (15:30)
[2018-09-12 15:31] LABS: MICROSCOPIC INDICATED
[2018-09-12] MEDS: CEFTRIAXONE PMX 1GM/50ML 50 ML IV SCH (15:41)
[2018-09-12 15:47] LABS: CULTURE INDICATED? NO
[2018-09-12] MEDS: AZITHROMYCIN 500 MG in SODIUM CHLORIDE 0.9% 250 ML IV SCH (16:31)
[2018-09-12 18:16] VITALS: BP 156/71
[2018-09-12] MEDS: ATORVASTATIN 80 MG TABLET PO SCH (21:11)
[2018-09-12] MEDS: TRAZODONE 50MG TABLET PO SCH (21:11)
[2018-09-12] MEDS: ROPINIROLE 0.5MG TABLET PO SCH (21:11)
[2018-09-12] MEDS: APIXABAN 5 MG TABLET PO SCH (21:11)
[2018-09-12 21:15] LABS: CLOSTRIDIUM DIFFICILE ANTIGEN NEGATIVE; CLOSTRIDIUM DIFFICILE TOXIN NEGATIVE (Negative)
[2018-09-13 01:50] VITALS: BP 158/70
[2018-09-13] MEDS: ACETAMINOPHEN 325 MG TABLET PO PRN (04:37)
[2018-09-13 07:01] VITALS: BP 174/80
[2018-09-13 07:25] LABS: ANION GAP 8 mmol/L (5-15); CALCIUM 8.5 mg/dL (8.5-10.1); CHLORIDE 108 mmol/L (98-107); CREATININE 0.63 mg/dL (0.7-1.3)
[2018-09-13 07:31] LABS: MEAN CORPUSCULAR HEMOGLOBIN 29.8 pg (27.5-34.5); MEAN CORPUSCULAR HGB CONC 32.8 g/dL (33.2-36.2); MEAN CORPUSCULAR VOLUME 90.9 fL (81-97); MEAN PLATELET VOLUME 9.4 fL (7.4-10.4); PLATELET COUNT 88 x10^3/uL (130-400); RED BLOOD COUNT 3.95 x10^6/uL (4.38-5.82); RED CELL DISTRIBUTION WIDTH 16.3 % (9.4-14.8)
[2018-09-13 07:52] LABS: MD YES
[2018-09-13 07:55] LABS: ANISOCYTOSIS 1+; BAND#(MANUAL) 0.88 x10^3/uL; BANDS%(MANUAL) 13 % (0-7); LYMPH#(MANUAL) 0.75 x10^3/uL (1-3.4); LYMPHS% (MANUAL) 11 % (22-44); MONOS#(MANUAL) 0.48 x10^3/uL (0.3-2.7); MONOS% (MANUAL) 7 % (2-9); SEG#(MANUAL) 4.69 x10^3/uL (1.8-6.8); SEGS% (MANUAL) 69 % (42-75)
[2018-09-13 07:56] LABS: <PLATELET ESTIMATE> DECREASED; <PLT MORPHOLOGY> NORMAL PLT MORPH
[2018-09-13 08:05] VITALS: BP 168/70
[2018-09-13] MEDS: APIXABAN 5 MG TABLET PO SCH (08:31)
[2018-09-13] MEDS: TAMSULOSIN 0.4 MG CAP.ER.24H PO SCH (08:47)
[2018-09-13] MEDS: ASPIRIN 81 MG TABLET EC PO SCH (08:47)
[2018-09-13] MEDS: CARBIDOPA/LEVODOPA 25 MG/100 MG TABLET PO SCH ×3 (08:47→20:09)
[2018-09-13] MEDS: LEVOTHYROXINE 50 MCG TABLET PO SCH (08:47)
[2018-09-13] MEDS: NICOTINE 14MG/24 HR PATCH.TD24 TD SCH (08:52)
[2018-09-13] MEDS ORDERED: POTASSIUM PHOSPHATE 44 MEQ in SODIUM CHLORIDE 0.9% 500 ML IV ONE (11:00)
[2018-09-13 12:39] VITALS: BP 157/70
[2018-09-13] MEDS: CEFTRIAXONE PMX 1GM/50ML 50 ML IV SCH (14:15)
[2018-09-13] MEDS ORDERED: INSULIN GLARGINE 100 UNITS/ML, PEN SQ-INSULIN SCH (17:00)
[2018-09-13] MEDS: INSULIN LISPRO 100 UNITS/ML, PEN SQ-INSULIN SCH ×2 (17:13→20:13)
[2018-09-13] MEDS: AZITHROMYCIN 500 MG in SODIUM CHLORIDE 0.9% 250 ML IV SCH (17:13)
[2018-09-13 19:49] VITALS: BP 172/79
[2018-09-13] MEDS: TRAZODONE 50MG TABLET PO SCH (20:09)
[2018-09-13] MEDS: ATORVASTATIN 80 MG TABLET PO SCH (20:09)
[2018-09-13] MEDS: ROPINIROLE 0.5MG TABLET PO SCH (20:09)
[2018-09-13 21:31] VITALS: BP 149/64
[2018-09-14 02:00] VITALS: BP 125/63
[2018-09-14 05:34] LABS: MEAN CORPUSCULAR HEMOGLOBIN 30.4 pg (27.5-34.5); MEAN CORPUSCULAR HGB CONC 34.4 g/dL (33.2-36.2); MEAN CORPUSCULAR VOLUME 88.4 fL (81-97); MEAN PLATELET VOLUME 8.9 fL (7.4-10.4); PLATELET COUNT 112 x10^3/uL (130-400); RED BLOOD COUNT 3.95 x10^6/uL (4.38-5.82)
[2018-09-14 05:35] LABS: ANION GAP 7 mmol/L (5-15); CALCIUM 8.8 mg/dL (8.5-10.1); CHLORIDE 109 mmol/L (98-107); CREATININE 0.59 mg/dL (0.7-1.3)
[2018-09-14 06:41] LABS: BASOPHILS # (AUTO) 0.04 x10^3/uL (0-0.1); BASOPHILS % (AUTO) 1 % (0-1); EOSINOPHILS % (AUTO) 2 % (1-7); LYMPHOCYTES # (AUTO) 1.13 x10^3/uL (1-3.4); LYMPHOCYTES % (AUTO) 22 % (22-44); MD SCAN; MONOCYTES % (AUTO) 8 % (2-9); NEUTROPHILS # (AUTO) 3.51 x10^3/uL (1.8-6.8); NEUTROPHILS % (AUTO) 68 % (42-75)
[2018-09-14] MEDS: INSULIN LISPRO 100 UNITS/ML, PEN SQ-INSULIN SCH ×4 (07:00→20:42)
[2018-09-14 07:10] VITALS: BP 149/71
[2018-09-14] MEDS ORDERED: POTASSIUM CHLORIDE 20 MEQ TAB.ER.PRT PO ONE (08:30)
[2018-09-14] MEDS: ASPIRIN 81 MG TABLET EC PO SCH (09:11)
[2018-09-14] MEDS: TAMSULOSIN 0.4 MG CAP.ER.24H PO SCH (09:11)
[2018-09-14] MEDS: CARBIDOPA/LEVODOPA 25 MG/100 MG TABLET PO SCH ×3 (09:12→20:42)
[2018-09-14] MEDS: NICOTINE 14MG/24 HR PATCH.TD24 TD SCH (09:12)
[2018-09-14] MEDS: LEVOTHYROXINE 50 MCG TABLET PO SCH (09:12)
[2018-09-14] MEDS: ENOXAPARIN 40 MG/0.4 ML SQ SCH (09:12)
[2018-09-14 12:36] VITALS: BP 169/73
[2018-09-14] MEDS: CEFTRIAXONE PMX 1GM/50ML 50 ML IV SCH (15:34)
[2018-09-14] MEDS: INSULIN GLARGINE 100 UNITS/ML, PEN SQ-INSULIN SCH (16:42)
[2018-09-14 19:46] VITALS: BP 155/68
[2018-09-14] MEDS: ATORVASTATIN 80 MG TABLET PO SCH (20:41)
[2018-09-14] MEDS: ROPINIROLE 0.5MG TABLET PO SCH (20:41)
[2018-09-14] MEDS: TRAZODONE 50MG TABLET PO SCH (20:42)
[2018-09-15 01:45] VITALS: BP 146/67
[2018-09-15 05:40] LABS: ANION GAP 6 mmol/L (5-15); CALCIUM 9.1 mg/dL (8.5-10.1); CHLORIDE 112 mmol/L (98-107)
[2018-09-15] MEDS: ACETAMINOPHEN 325 MG TABLET PO PRN (06:11)
[2018-09-15] MEDS: INSULIN LISPRO 100 UNITS/ML, PEN SQ-INSULIN SCH ×5 (07:00→22:16)
[2018-09-15 07:55] VITALS: BP 166/72
[2018-09-15] MEDS: TAMSULOSIN 0.4 MG CAP.ER.24H PO SCH (08:58)
[2018-09-15] MEDS: CARBIDOPA/LEVODOPA 25 MG/100 MG TABLET PO SCH ×3 (08:59→22:15)
[2018-09-15] MEDS: LEVOTHYROXINE 50 MCG TABLET PO SCH (09:00)
[2018-09-15] MEDS: ASPIRIN 81 MG TABLET EC PO SCH (09:01)
[2018-09-15] MEDS: ENOXAPARIN 40 MG/0.4 ML SQ SCH (09:02)
[2018-09-15] MEDS: NICOTINE 14MG/24 HR PATCH.TD24 TD SCH (09:03)
[2018-09-15] MEDS: CEFTRIAXONE PMX 1GM/50ML 50 ML IV SCH (13:40)
[2018-09-15 14:47] VITALS: BP 166/66
[2018-09-15] MEDS: INSULIN GLARGINE 100 UNITS/ML, PEN SQ-INSULIN SCH (17:00)
[2018-09-15 19:34] VITALS: BP 156/58
[2018-09-15] MEDS: ATORVASTATIN 80 MG TABLET PO SCH (22:15)
[2018-09-15] MEDS: TRAZODONE 50MG TABLET PO SCH (22:15)
[2018-09-15] MEDS: ROPINIROLE 0.5MG TABLET PO SCH (22:15)
[2018-09-16 00:51] VITALS: BP 134/58
[2018-09-16] MEDS: INSULIN LISPRO 100 UNITS/ML, PEN SQ-INSULIN SCH ×6 (07:00→22:11)
[2018-09-16 08:30] VITALS: BP 156/78
[2018-09-16] MEDS ORDERED: ENOXAPARIN 30 MG/0.3 ML SQ SCH (09:00)
[2018-09-16] MEDS: ASPIRIN 81 MG TABLET EC PO SCH (09:05)
[2018-09-16] MEDS: TAMSULOSIN 0.4 MG CAP.ER.24H PO SCH (09:06)
[2018-09-16] MEDS: CARBIDOPA/LEVODOPA 25 MG/100 MG TABLET PO SCH ×3 (09:06→22:10)
[2018-09-16] MEDS: LEVOTHYROXINE 50 MCG TABLET PO SCH (09:06)
[2018-09-16] MEDS: NICOTINE 14MG/24 HR PATCH.TD24 TD SCH (09:07)
[2018-09-16 14:27] VITALS: BP 165/69
[2018-09-16] MEDS: CEFTRIAXONE PMX 1GM/50ML 50 ML IV SCH (16:29)
[2018-09-16] MEDS: INSULIN GLARGINE 100 UNITS/ML, PEN SQ-INSULIN SCH (16:44)
[2018-09-16 20:00] VITALS: BP 167/71
[2018-09-16] MEDS: TRAZODONE 50MG TABLET PO SCH (22:10)
[2018-09-16] MEDS: ATORVASTATIN 80 MG TABLET PO SCH (22:10)
[2018-09-16] MEDS: ROPINIROLE 0.5MG TABLET PO SCH (22:10)
[2018-09-17 02:54] VITALS: BP 118/70
[2018-09-17] MEDS: INSULIN LISPRO 100 UNITS/ML, PEN SQ-INSULIN SCH ×6 (07:00→22:04)
[2018-09-17 07:50] VITALS: BP 177/66
[2018-09-17] MEDS: NICOTINE 14MG/24 HR PATCH.TD24 TD SCH (08:27)
[2018-09-17] MEDS: LEVOTHYROXINE 50 MCG TABLET PO SCH (08:28)
[2018-09-17] MEDS: ENOXAPARIN 40 MG/0.4 ML SQ SCH (08:28)
[2018-09-17] MEDS: ASPIRIN 81 MG TABLET EC PO SCH (08:28)
[2018-09-17] MEDS: CARBIDOPA/LEVODOPA 25 MG/100 MG TABLET PO SCH ×3 (08:28→22:05)
[2018-09-17] MEDS: TAMSULOSIN 0.4 MG CAP.ER.24H PO SCH (08:28)
[2018-09-17 08:41] LABS: BASOPHILS # (AUTO) 0.02 x10^3/uL (0-0.1); BASOPHILS % (AUTO) 0 % (0-1); EOSINOPHILS % (AUTO) 3 % (1-7); LYMPHOCYTES # (AUTO) 1.22 x10^3/uL (1-3.4); LYMPHOCYTES % (AUTO) 18 % (22-44); MD NO; MEAN CORPUSCULAR HGB CONC 33.1 g/dL (33.2-36.2); MEAN CORPUSCULAR VOLUME 90.4 fL (81-97); MEAN PLATELET VOLUME 8.4 fL (7.4-10.4); MONOCYTES # (AUTO) 0.42 x10^3/uL (0.2-0.8); MONOCYTES % (AUTO) 6 % (2-9); NEUTROPHILS # (AUTO) 4.95 x10^3/uL (1.8-6.8); NEUTROPHILS % (AUTO) 73 % (42-75); PLATELET COUNT 172 x10^3/uL (130-400); RED BLOOD COUNT 4.33 x10^6/uL (4.38-5.82); RED CELL DISTRIBUTION WIDTH 15.8 % (9.4-14.8)
[2018-09-17 08:45] LABS: ANION GAP 7 mmol/L (5-15); CHLORIDE 107 mmol/L (98-107); CREATININE 0.69 mg/dL (0.7-1.3)
[2018-09-17 12:31] VITALS: BP 142/72
[2018-09-17] MEDS: CEFTRIAXONE PMX 1GM/50ML 50 ML IV SCH (14:22)
[2018-09-17] MEDS: INSULIN GLARGINE 100 UNITS/ML, PEN SQ-INSULIN SCH (16:54)
[2018-09-17 19:49] VITALS: BP 169/70
[2018-09-17] MEDS: ROPINIROLE 0.5MG TABLET PO SCH (22:05)
[2018-09-17] MEDS: ATORVASTATIN 80 MG TABLET PO SCH (22:05)
[2018-09-17] MEDS: TRAZODONE 50MG TABLET PO SCH (22:05)
[2018-09-18 02:58] VITALS: BP 124/54
[2018-09-18] MEDS: INSULIN LISPRO 100 UNITS/ML, PEN SQ-INSULIN SCH ×3 (07:00→11:57)
[2018-09-18 08:14] VITALS: BP 121/59
[2018-09-18] MEDS: LEVOTHYROXINE 50 MCG TABLET PO SCH (09:04)
[2018-09-18] MEDS: ASPIRIN 81 MG TABLET EC PO SCH (09:05)
[2018-09-18] MEDS: TAMSULOSIN 0.4 MG CAP.ER.24H PO SCH (09:05)
[2018-09-18] MEDS: CARBIDOPA/LEVODOPA 25 MG/100 MG TABLET PO SCH (09:05)
[2018-09-18] MEDS: ENOXAPARIN 40 MG/0.4 ML SQ SCH (09:05)
[2018-09-18] MEDS: NICOTINE 14MG/24 HR PATCH.TD24 TD SCH (09:06)
[2018-09-18] MEDS ORDERED: AMOX-291 PO (12:26)
[2018-09-18] MEDS ORDERED: NICO-486 TD (12:26)
[2018-09-18] MEDS ORDERED: INSU100I11 SQ-INSULIN (12:26)
[2018-09-18] MEDS ORDERED: INSU100I13 SQ-INSULIN (12:26)
[2018-09-18 12:38] VITALS: BP 103/51
[2018-09-18] MEDS: CEFTRIAXONE PMX 1GM/50ML 50 ML IV SCH (14:00)
== END 2018-09-18 15:05 | DRG 871 ==
LOC: ED 13:27 → EDIP 14:44 → 4EST 16:34 → 4WST 09-13 17:45 → 4EST 09-14 12:52
PROVIDERS: ADMIT Internal Medicine; ATTEND Internal Medicine
PROC: B3181ZZ Fluoroscopy of Bilateral Internal Carotid Arteries using Low Osmolar Contrast (ICD-10-PCS; 2018-09-11)
PROC: 0T9B70Z Drainage of Bladder with Drainage Device, Via Natural or Artificial Opening (ICD-10-PCS; principal; 2018-09-12)
DX: A40.8 Other streptococcal sepsis (principal); J15.9 Unspecified bacterial pneumonia; G92 Toxic encephalopathy; I63.81 Other cerebral infarction due to occlusion or stenosis of small artery; G81.94 Hemiplegia, unspecified affecting left nondominant side; J98.11 Atelectasis; D69.6 Thrombocytopenia, unspecified; E11.51 Type 2 diabetes mellitus with diabetic peripheral angiopathy without gangrene; E11.65 Type 2 diabetes mellitus with hyperglycemia; E78.5 Hyperlipidemia, unspecified; E83.39 Other disorders of phosphorus metabolism; E86.0 Dehydration; E87.6 Hypokalemia; F02.80 Dementia in other diseases classified elsewhere, unspecified severity, without behavioral disturbance, psychotic disturbance, mood disturbance, and anxiety; F17.210 Nicotine dependence, cigarettes, uncomplicated; G20 Parkinson's disease; I10 Essential (primary) hypertension; I25.10 Atherosclerotic heart disease of native coronary artery without angina pectoris; I48.91 Unspecified atrial fibrillation; I65.23 Occlusion and stenosis of bilateral carotid arteries; N40.0 Benign prostatic hyperplasia without lower urinary tract symptoms; R13.10 Dysphagia, unspecified; R29.810 Facial weakness; Z79.4 Long term (current) use of insulin; Z82.49 Family history of ischemic heart disease and other diseases of the circulatory system; Z82.5 Family history of asthma and other chronic lower respiratory diseases; Z83.3 Family history of diabetes mellitus; Z95.1 Presence of aortocoronary bypass graft; Z95.5 Presence of coronary angioplasty implant and graft
CPT/HCPCS: 36415; 70450; 70496; 70498; 70551; 71045; 80047; 80048; 80061; 81001; 82010; 82800; 82962; 83605; 83735; 83880; 84100; 84145; 84443; 84484; 85025; 85610; 85730; 87040; 87147; 87181; 87324; 93005; 96374; 99291; G0378; J0456; J0696; J1650; Q9967; 92523-GN; J1815; J7030; J7040; J7050; J7120

== ENCOUNTER 2018-09-21 23:07 | Inpatient (IN) | payer MEDICARE, MEDICAID ==
[~2018-09-21] VITALS: Ht 180.3 cm; Wt 64.0 kg
[~2018-09-21 23:07] MED LIST changes: +AMOX-291 PO; +INSU100I11 SQ-INSULIN; +INSU100I13 SQ-INSULIN; +NICO-486 TD
[2018-09-21] MEDS ORDERED: HYDROcodone/APAP 5/325 TABLET ONE (23:51)
[2018-09-22] MEDS ORDERED: HYDROcodone/APAP 5/325 TABLET PO PRN
--- NOTE | 2018-09-22 00:19 | NUR ---
Chris at bedside, reports pt had stroke approx 2 weeks ago, left hospital with catheter in, has had multiple episodes of removing catheter. Appointment tomorrow with urologist for consult, daughter thinks cath is in for BPH
--- NOTE | 2018-09-22 00:20 | NUR ---
Bladder scan >588ml, pt given urinal to attempt to void.
[2018-09-22] MEDS ORDERED: LIDOCAINE 2%,20 ML JEL.PF.APP MM ONE (00:45)
--- NOTE | 2018-09-22 01:29 | NUR ---
20F coude haddad cath inserted and hand irrigated. Approx 1500ml sterile saline used to irrigate, light tea colored returned noted by the end of procedure. Pt repositioned on bed, c/o sacral pain, req wound care. Pt agrees to wait for recheck and dispo before attempting wound care and skin barrier.
--- NOTE | 2018-09-22 02:26 | NUR ---
report received from wu garcia.
--- NOTE | 2018-09-22 02:40 | NUR ---
report given to olimpia garcia. all questions answered.
[2018-09-22] MEDS ORDERED: hydrALAzine 20 MG/ML, 1ML IVPush PRN (03:00)
[2018-09-22] MEDS ORDERED: NICOTINE 14MG/24 HR PATCH.TD24 TD SCH (03:00)
[2018-09-22] MEDS ORDERED: ACETAMINOPHEN 325 MG TABLET PO PRN (03:00)
[2018-09-22] MEDS ORDERED: POLYETHYLENE GLYCOL 17 GM PACKET PO PRN (03:00)
[2018-09-22 03:01] VITALS: BP 98/50
[2018-09-22 04:35] LABS: CULTURE INDICATED? YES; MICROSCOPIC INDICATED
[2018-09-22] MEDS: INSULIN LISPRO 100 UNITS/ML, PEN SQ-INSULIN SCH ×2 (07:00→11:00)
[2018-09-22] MEDS ORDERED: CEFTRIAXONE PMX 1GM/50ML 50 ML IV SCH (07:30)
[2018-09-22 08:53] VITALS: BP 111/49
[2018-09-22] MEDS ORDERED: LEVOTHYROXINE 50 MCG TABLET PO SCH (09:00)
[2018-09-22] MEDS ORDERED: CARBIDOPA/LEVODOPA 25 MG/100 MG TABLET PO SCH (09:00)
[2018-09-22] MEDS ORDERED: TAMSULOSIN 0.4 MG CAP.ER.24H PO SCH (09:00)
[2018-09-22] MEDS ORDERED: ASPIRIN 81 MG TABLET EC PO SCH (09:00)
[2018-09-22 13:00] VITALS: BP 118/57
[2018-09-22] MEDS ORDERED: CEFD300C37 PO (13:42)
[2018-09-22 14:18] LABS: ALANINE AMINOTRANSFERASE 10 U/L (12-78); ALBUMIN 2.7 g/dL (3.4-5.0); ANION GAP 7 mmol/L (5-15); CALCIUM 8.5 mg/dL (8.5-10.1); CHLORIDE 109 mmol/L (98-107); CREATININE 0.96 mg/dL (0.7-1.3)
[2018-09-22 14:19] LABS: BASOPHILS # (AUTO) 0.03 x10^3/uL (0-0.1); BASOPHILS % (AUTO) 0 % (0-1); EOSINOPHILS # (AUTO) 0.15 x10^3/uL (0-0.4); EOSINOPHILS % (AUTO) 2 % (1-7); LYMPHOCYTES # (AUTO) 1.07 x10^3/uL (1-3.4); LYMPHOCYTES % (AUTO) 16 % (22-44); MD NO; MEAN CORPUSCULAR HEMOGLOBIN 30.9 pg (27.5-34.5); MEAN PLATELET VOLUME 8.1 fL (7.4-10.4); MONOCYTES # (AUTO) 0.38 x10^3/uL (0.2-0.8); MONOCYTES % (AUTO) 6 % (2-9); NEUTROPHILS # (AUTO) 5.23 x10^3/uL (1.8-6.8); NEUTROPHILS % (AUTO) 76 % (42-75); PLATELET COUNT 214 x10^3/uL (130-400); RED BLOOD COUNT 3.11 x10^6/uL (4.38-5.82); RED CELL DISTRIBUTION WIDTH 16.3 % (9.4-14.8)
[2018-09-22 14:20] LABS: ALKALINE PHOSPHATASE 63 U/L (45-117); BILIRUBIN,TOTAL 0.9 mg/dL (0.2-1.0)
[2018-09-22] MEDS ORDERED: INSULIN GLARGINE 100 UNITS/ML, PEN SQ-INSULIN SCH (17:00)
[2018-09-22] MEDS ORDERED: TRAZODONE 50MG TABLET PO SCH (21:00)
[2018-09-22] MEDS ORDERED: ATORVASTATIN 80 MG TABLET PO SCH (21:00)
[2018-09-22] MEDS ORDERED: MIRTAZAPINE 15 MG TABLET PO SCH (21:00)
== END 2018-09-22 16:00 | DRG 726 ==
LOC: ED 23:18 → EDIP 09-22 02:13 → 4NOR 09-22 02:45
PROVIDERS: ADMIT Family Medicine; ATTEND Family Medicine
DX: N40.1 Benign prostatic hyperplasia with lower urinary tract symptoms (principal); N39.0 Urinary tract infection, site not specified; E03.9 Hypothyroidism, unspecified; E11.9 Type 2 diabetes mellitus without complications; E78.5 Hyperlipidemia, unspecified; F17.200 Nicotine dependence, unspecified, uncomplicated; I10 Essential (primary) hypertension; G20 Parkinson's disease; R33.8 Other retention of urine; Z79.4 Long term (current) use of insulin; Z79.899 Other long term (current) drug therapy; Z86.73 Personal history of transient ischemic attack (TIA), and cerebral infarction without residual deficits; Z79.82 Long term (current) use of aspirin
CPT/HCPCS: 51702; 80053; 81001; 82962; 85025; 87086; G0378; J0696

== ENCOUNTER 2018-11-07 07:13 | Emergency (ER) | payer MEDICARE, MEDICAID ==
[~2018-11-07] VITALS: Ht 177.8 cm; Wt 66.9 kg
[~2018-11-07 07:13] MED LIST changes: +CEFD300C37 PO; -NITR0.4T SL; +NITR0.4T41 SL
[2018-11-07 07:36] LABS: BASOPHILS # (AUTO) 0.07 x10^3/uL (0-0.1); BASOPHILS % (AUTO) 1 % (0-1); EOSINOPHILS # (AUTO) 0.24 x10^3/uL (0-0.4); EOSINOPHILS % (AUTO) 3 % (1-7); LYMPHOCYTES # (AUTO) 1.22 x10^3/uL (1-3.4); LYMPHOCYTES % (AUTO) 14 % (22-44); MD NO; MEAN CORPUSCULAR HEMOGLOBIN 26.9 pg (27.5-34.5); MEAN CORPUSCULAR HGB CONC 31.2 g/dL (33.2-36.2); MEAN CORPUSCULAR VOLUME 86.1 fL (81-97); MEAN PLATELET VOLUME 7.2 fL (7.4-10.4); MONOCYTES # (AUTO) 0.57 x10^3/uL (0.2-0.8); MONOCYTES % (AUTO) 6 % (2-9); NEUTROPHILS # (AUTO) 6.97 x10^3/uL (1.8-6.8); NEUTROPHILS % (AUTO) 77 % (42-75); PLATELET COUNT 322 x10^3/uL (130-400); RED BLOOD COUNT 3.48 x10^6/uL (4.38-5.82)
[2018-11-07 07:45] LABS: ALBUMIN 2.6 g/dL (3.4-5.0); ANION GAP 6 mmol/L (5-15); CALCIUM 8.9 mg/dL (8.5-10.1); CHLORIDE 110 mmol/L (98-107); CREATININE 0.67 mg/dL (0.7-1.3)
[2018-11-07 07:48] LABS: INTERNATIONAL NORMALIZED RATIO 1.1 (0.93-1.1); PROTHROMBIN TIME 11.5 Seconds (9.6-11.5)
[2018-11-07] MEDS ORDERED: INSU100V13 SQ-INSULIN (07:50)
[2018-11-07] MEDS ORDERED: FINA5TAB4 PO (07:50)
[2018-11-07] MEDS ORDERED: MORPHINE SULFATE 4 MG/ML, 1ML ONE (08:27)
[2018-11-07] MEDS ORDERED: morphine SULFATE 10 MG/ML, 1ML IVPush ONE (08:30)
--- NOTE | 2018-11-07 08:37 | NUR ---
TASK RN - DR HODGSON AT BEDSIDE TO ASSESS VINSON PLACEMENT WITH US DUE TO EXCESSIVE BLEEDING. ADVISED TO REATTEMPT INSERTION WITH 20 FR COUDE TIP.
--- NOTE | 2018-11-07 09:51 | NUR ---
Second attempt of haddad catheter 18 gauge Serbian three-way attempted to be placed with ED staff nuclear weapons officer for [employer]. Unsuccessful placement of haddad catheter, please see haddad placement form. ED MD aware. Urology paged.
--- NOTE | 2018-11-07 12:27 | NUR ---
Haddad catheter placed by urology with a 20 gauge coude catheter. Hand irrigation done and removed small to moderate sized blood clots from haddad catheter. Urine is pink blood tinged after hand irrigation. ED MD aware.
--- NOTE | 2018-11-07 12:59 | NUR ---
Pt transported back to [facility] where he came from today by [employer]. Pt up 1 assist to wheelchair. Pt left with all personal belongings, d/c paperwork, and haddad catheter in place. Report provided to LAKISHA Salomon at [facility] prior to d/c.
[2018-11-07 13:00] VITALS: BP 117/50
== END 2018-11-07 13:02 | disposition home or self-care (01) ==
LOC: ED 09:00
DX: R31.0 Gross hematuria (principal); T83.098D Other mechanical complication of other urinary catheter, subsequent encounter; I10 Essential (primary) hypertension; E11.9 Type 2 diabetes mellitus without complications; I25.10 Atherosclerotic heart disease of native coronary artery without angina pectoris; I25.2 Old myocardial infarction; F03.90 Unspecified dementia, unspecified severity, without behavioral disturbance, psychotic disturbance, mood disturbance, and anxiety
CPT/HCPCS: 36415; 51702; 80048; 82040; 85025; 85610; 85730; 96374; 99284; C1726; J2270

== ENCOUNTER 2018-12-18 19:33 | Emergency (ER) | payer MEDICARE, MEDICAID ==
[~2018-12-18 19:33] MED LIST changes: +FINA5TAB4 PO; +INSU100V13 SQ-INSULIN
--- NOTE | 2018-12-18 19:50 | NUR ---
SENT TO ED FROM [facility] FOR ABNORMAL LABS. DOCUMENT: LAB RESULT FROM 12/18/18 0345: HGB 6.9, CRIT 23.8. VINSON CATH PRESENT, DRAINING CLOUDY BLOOD TINGED URINE, PT HAS HX OF CHRONIC HEMATURIA. PER EMS, PT'S DAUGHTER HAS HPOA & WILL BE IN. EMS: IV 18G RAC, GLUCOSE 153
--- NOTE | 2018-12-18 20:14 | NUR ---
LAB BS. DAUGHTER NOW BS.
[2018-12-18] MEDS ORDERED: SODIUM CHLORIDE FLUSH 10ML SYR IVF ONE (20:30)
[2018-12-18 20:37] LABS: INTERNATIONAL NORMALIZED RATIO 1.07 (0.93-1.1); PROTHROMBIN TIME 11.2 Seconds (9.6-11.5)
[2018-12-18 20:38] LABS: ALANINE AMINOTRANSFERASE 13 U/L (12-78); ALBUMIN 2.2 g/dL (3.4-5.0); ANION GAP 7 mmol/L (5-15); BASOPHILS # (AUTO) 0.02 x10^3/uL (0-0.1); BASOPHILS % (AUTO) 0 % (0-1); CALCIUM 8.7 mg/dL (8.5-10.1); CHLORIDE 106 mmol/L (98-107); CREATININE 0.76 mg/dL (0.7-1.3); EOSINOPHILS % (AUTO) 4 % (1-7); LYMPHOCYTES # (AUTO) 0.78 x10^3/uL (1-3.4); LYMPHOCYTES % (AUTO) 16 % (22-44); MD NO; MEAN CORPUSCULAR HEMOGLOBIN 22.7 pg (27.5-34.5); MEAN CORPUSCULAR HGB CONC 30.2 g/dL (33.2-36.2); MEAN CORPUSCULAR VOLUME 75.3 fL (81-97); MEAN PLATELET VOLUME 7.1 fL (7.4-10.4); MONOCYTES # (AUTO) 0.49 x10^3/uL (0.2-0.8); MONOCYTES % (AUTO) 10 % (2-9); NEUTROPHILS % (AUTO) 70 % (42-75); PLATELET COUNT 302 x10^3/uL (130-400); RED BLOOD COUNT 3.22 x10^6/uL (4.38-5.82); RED CELL DISTRIBUTION WIDTH 18.7 % (9.4-14.8)
[2018-12-18 20:40] LABS: ALKALINE PHOSPHATASE 95 U/L (45-117); BILIRUBIN,TOTAL 0.4 mg/dL (0.2-1.0); TOTAL PROTEIN 7.4 g/dL (6.4-8.2)
--- NOTE | 2018-12-18 21:13 | NUR ---
URINE SPECIMEN PULLED FROM CATHETER PORT
--- NOTE | 2018-12-18 21:14 | NUR ---
PT RESTING QUIETLY ON BED, SIDE RAILS UP X2, CALL LIGHT W/IN REACH, DAUGHTER AT BS.
--- NOTE | 2018-12-18 21:43 | NUR ---
Blood transfusion consent signed by pt's daughter (HPOA).
[2018-12-18 21:44] LABS: CULTURE INDICATED? YES; MICROSCOPIC INDICATED
--- NOTE | 2018-12-18 21:55 | NUR ---
BLOOD ORDER SENT TO BLOOD BANK
--- NOTE | 2018-12-18 22:08 | NUR ---
RAC 18G SALINE LOCK CLOTTED. WILL INITIATE NEW IV SITE. BLOOD PRODUCT RECEIVED
[2018-12-18 22:25] VITALS: BP 155/64
[2018-12-18 22:35] VITALS: BP 132/73
[2018-12-18 22:42] VITALS: BP 161/60
[2018-12-18 22:45] VITALS: BP 163/70
[2018-12-18 23:07] VITALS: BP 175/82
--- NOTE | 2018-12-18 23:23 | NUR ---
REPORT RECIEVED FROM LAKISHA BRAND
--- NOTE | 2018-12-18 23:23 | NUR ---
PT REPORT TO LAKISHA CAMACHO. PT CARE TRANSFERRED. BLOOD TRANSFUSION IN PROGRESS, PT TOLERATING PROCEDURE WELL. SIDE RAILS UP X2. PT'S DAUGHTER IN ROOM.
[2018-12-19] VITALS: BP 169/81
--- NOTE | 2018-12-19 00:21 | NUR ---
PT TOLERATED BLODO WELL. PT TO BE DISCHARGED BACK TO SNF
[2018-12-19] MEDS ORDERED: CEFDINIR 300 MG CAPSULE PO ONE (00:30)
[2018-12-19] MEDS ORDERED: CEFDINIR 300 MG CAPSULE ONE (00:43)
== END 2018-12-19 01:01 | disposition home or self-care (01) ==
LOC: ED 22:23
DX: D64.9 Anemia, unspecified (principal); N30.01 Acute cystitis with hematuria; E11.9 Type 2 diabetes mellitus without complications; I10 Essential (primary) hypertension; I25.2 Old myocardial infarction; I25.10 Atherosclerotic heart disease of native coronary artery without angina pectoris; E78.5 Hyperlipidemia, unspecified
CPT/HCPCS: 36415; 36430; 80053; 81001; 85025; 85610; 85730; 86850; 86900; 86923; 87086; 99285; P9016; 99283